=== PATIENT | female | born 1940 | race Caucasian/White ===

== ENCOUNTER → 2018-01-02 | Outpatient (CLI) | payer MEDICARE, BC ==
[~2018-01-02] MED LIST: BUDE80AE3; CARV40CA; EZET10TA47; FLUT0.0531; FURO40TA4; KLORCON; LEVO50TA53; MICARDIS; MONT10TA23; PROVENTIL
== END | disposition home or self-care (01) ==
LOC: Rad HDHVI 12:13
PROVIDERS: ATTEND Internal Medicine Cardiovascular Disease
DX: I07.1 Rheumatic tricuspid insufficiency (principal); I11.0 Hypertensive heart disease with heart failure; R00.2 Palpitations; I50.9 Heart failure, unspecified; E03.9 Hypothyroidism, unspecified; E11.9 Type 2 diabetes mellitus without complications; I73.9 Peripheral vascular disease, unspecified
CPT/HCPCS: 93306; 93880

== ENCOUNTER → 2018-01-23 | Outpatient (CLI) | payer MEDICARE, BC ==
[~2018-01-23] VITALS: Ht 157.5 cm; Wt 65.8 kg
[2018-01-23 12:32] LABS: Basophils # (auto) 0 uL; Basophils % (auto) 0.2 % (0.0-2.0); Eosinophils # (auto) 0.1 uL; Eosinophils % (auto) 2.2 % (0.0-7.0); Hematocrit 45.8 % (36.0-46.0); Lymphocytes # (auto) 1.7 uL; Lymphocytes % (auto) 28.3 % (10.0-50.0); Mean Corpuscular Hemoglobin 29.2 pg (28.0-32.0); Mean Corpuscular Hgb Conc. 32.6 g/dL (32.0-36.0); Mean Corpuscular Volume 89.6 fL (80.0-100.0); Monocytes # (auto) 0.5 uL; Monocytes % (auto) 7.9 % (0.0-12.0); Neutrophils # (auto) 3.6 uL; Neutrophils % (auto) 61.4 % (37.0-80.0); Nucleated Red Blood Cells % 0.2 %; Platelet Count (auto) 164 10^3/uL (140-450); Red Blood Cells 5.12 10^6/uL (4.0-5.20); Red Cell Distribution Width 14.7 % (11.8-14.3); Urine Blood Negative /uL (Negative); Urine Specific Gravity 1.009 (1.001-1.035); White Blood Cell 5.8 10^3/uL (4.4-10.8)
[2018-01-23 12:47] LABS: Albumin 3.7 g/dL (3.4-5.0); Bilirubin, Total 0.7 mg/dL (0.2-1.0); Calcium 9.1 mg/dL (8.5-10.1); Free T4 (Free Thyroxine) 1.08 ng/dL (0.89-1.76); Potassium 4.1 mmol/L (3.5-5.1); Total Protein 6.7 g/dL (6.4-8.2)
== END | disposition home or self-care (01) ==
LOC: Rad HDHVI 08:24
PROVIDERS: ATTEND Internal Medicine Cardiovascular Disease
DX: Z00.01 Encounter for general adult medical examination with abnormal findings (principal); E03.9 Hypothyroidism, unspecified; E11.9 Type 2 diabetes mellitus without complications; E55.9 Vitamin D deficiency, unspecified; D51.9 Vitamin B12 deficiency anemia, unspecified; N39.0 Urinary tract infection, site not specified; I10 Essential (primary) hypertension; E78.00 Pure hypercholesterolemia, unspecified; R00.2 Palpitations
CPT/HCPCS: 36415; 78452; 80053; 80061; 81003; 82306; 82607; 83036; 84439; 84443; 85025; 87086; 93017; 96374; A9500

== ENCOUNTER → 2018-12-04 | Outpatient (CLI) | payer MEDICARE, BC ==
[2018-12-04 12:05] LABS: Basophils # (auto) 0 uL; Basophils % (auto) 0.4 % (0.0-2.0); Eosinophils # (auto) 0.1 uL; Eosinophils % (auto) 1.6 % (0.0-7.0); Hematocrit 46.7 % (36.0-46.0); Hemoglobin 15.9 g/dL (12.2-16.2); Lymphocytes # (auto) 1.2 uL; Lymphocytes % (auto) 19.4 % (10.0-50.0); Mean Corpuscular Hemoglobin 30.6 pg (28.0-32.0); Mean Corpuscular Hgb Conc. 34.1 g/dL (32.0-36.0); Mean Corpuscular Volume 89.7 fL (80.0-100.0); Monocytes # (auto) 0.4 uL; Monocytes % (auto) 7.2 % (0.0-12.0); Neutrophils # (auto) 4.3 uL; Neutrophils % (auto) 71.4 % (37.0-80.0); Nucleated Red Blood Cells % 0.1 %; Platelet Count (auto) 170 10^3/uL (140-450); White Blood Cell 6.1 10^3/uL (4.4-10.8)
[2018-12-04 12:06] LABS: Urine Blood Negative /uL (Negative); Urine Specific Gravity 1.013 (1.001-1.035)
[2018-12-04 12:52] LABS: Calcium 9.5 mg/dL (8.5-10.1); Potassium 4.1 mmol/L (3.5-5.1)
[2018-12-04 12:55] LABS: BUN/Creatinine Ratio 30.5; Bilirubin, Total 0.5 mg/dL (0.2-1.0); Total Protein 7.2 g/dL (6.4-8.2)
[2018-12-04 13:04] LABS: Free T4 (Free Thyroxine) 1.03 ng/dL (0.89-1.76)
== END | disposition home or self-care (01) ==
LOC: LAB 07:53
PROVIDERS: ATTEND Internal Medicine Cardiovascular Disease
DX: E03.9 Hypothyroidism, unspecified (principal); K90.9 Intestinal malabsorption, unspecified; N39.0 Urinary tract infection, site not specified; D51.9 Vitamin B12 deficiency anemia, unspecified; Z79.899 Other long term (current) drug therapy
CPT/HCPCS: 36415; 80053; 80061; 81003; 82306; 82607; 83036; 84439; 84443; 85025

== ENCOUNTER → 2019-12-19 | Outpatient (CLI) | payer MEDICARE, OTHER ==
[~2019-12-19] MED LIST changes: +EZET10TA21; -EZET10TA47
== END | disposition home or self-care (01) ==
LOC: Rad HDHVI 09:50
PROVIDERS: ATTEND Internal Medicine Cardiovascular Disease
DX: I27.21 Secondary pulmonary arterial hypertension (principal); R00.2 Palpitations; I10 Essential (primary) hypertension
CPT/HCPCS: 93306

== ENCOUNTER → 2020-05-24 | Outpatient (CLI) | payer MEDICARE, BC ==
[2020-05-24 12:02] LABS: Urine Blood Negative /uL (Negative); Urine Specific Gravity 1.012 (1.001-1.035)
[2020-05-24 12:17] LABS: Basophils # (auto) 0 10 ^3/uL (0-0.2); Basophils % (auto) 0.4 % (0.0-2.0); Eosinophils # (auto) 0.2 10 ^3/uL (0-0.8); Eosinophils % (auto) 3.7 % (0.0-7.0); Hematocrit 44.9 % (36.0-46.0); Lymphocytes # (auto) 1.2 10 ^3/uL (0.4-5.4); Lymphocytes % (auto) 22.3 % (10.0-50.0); Mean Corpuscular Hemoglobin 29.1 pg (28.0-32.0); Mean Corpuscular Hgb Conc. 33.5 g/dL (32.0-36.0); Monocytes # (auto) 0.5 10 ^3/uL (0-1.3); Monocytes % (auto) 8.1 % (0.0-12.0); Neutrophils # (auto) 3.7 10 ^3/uL (1.6-8.6); Neutrophils % (auto) 65.5 % (37.0-80.0); Nucleated Red Blood Cells % 0.1 %; Platelet Count (auto) 190 10^3/uL (140-450); Red Blood Cells 5.16 10^6/uL (4.0-5.20); Red Cell Distribution Width 15.2 % (11.8-14.3); White Blood Cell 5.6 10^3/uL (4.4-10.8)
[2020-05-24 12:18] LABS: Albumin 3.7 g/dL (3.4-5.0); Potassium 4.4 mmol/L (3.5-5.1)
[2020-05-24 12:22] LABS: BUN/Creatinine Ratio 20.9; Bilirubin, Total 0.5 mg/dL (0.2-1.0); Free T4 (Free Thyroxine) 1.16 ng/dL (0.89-1.76); Total Protein 7.3 g/dL (6.4-8.2)
== END | disposition home or self-care (01) ==
LOC: LAB 08:51
PROVIDERS: ATTEND Internal Medicine Cardiovascular Disease
DX: D51.3 Other dietary vitamin B12 deficiency anemia (principal); I10 Essential (primary) hypertension; E11.9 Type 2 diabetes mellitus without complications; E55.9 Vitamin D deficiency, unspecified; R00.2 Palpitations; R30.0 Dysuria; R53.1 Weakness
CPT/HCPCS: 36415; 80053; 80061; 81003; 82306; 82607; 83036; 84439; 84443; 85025

== ENCOUNTER → 2020-07-09 | Outpatient (CLI) | payer MEDICARE, BC ==
[~2020-07-09] VITALS: Ht 157.5 cm; Wt 77.6 kg
[~2020-07-09] MED LIST changes: +ADENOSINE 65 MG in GIVE UN-DILUTED 0 ML IV ONE; +ADENOSINE 90 MG/30 ML INJ IV ONE
== END | disposition home or self-care (01) ==
LOC: Rad HDHVI 08:11
PROVIDERS: ATTEND Internal Medicine Cardiovascular Disease
DX: I10 Essential (primary) hypertension (principal); E78.00 Pure hypercholesterolemia, unspecified; E78.5 Hyperlipidemia, unspecified; R06.01 Orthopnea; R06.02 Shortness of breath; R07.89 Other chest pain
CPT/HCPCS: 78452; 93005; 96374; 96375; A9500; J0153

== ENCOUNTER → 2020-12-21 | Outpatient (CLI) | payer MEDICARE, BC ==
[~2020-12-21] MED LIST changes: -ADENOSINE 65 MG in GIVE UN-DILUTED 0 ML IV ONE; -ADENOSINE 90 MG/30 ML INJ IV ONE
== END | disposition home or self-care (01) ==
LOC: Rad HDHVI 09:59
PROVIDERS: ATTEND Internal Medicine Cardiovascular Disease
DX: I08.1 Rheumatic disorders of both mitral and tricuspid valves (principal); I71.2 Thoracic aortic aneurysm, without rupture; R00.2 Palpitations; R07.89 Other chest pain
CPT/HCPCS: 93306

== ENCOUNTER → 2020-12-24 | Outpatient (CLI) | payer MEDICARE, BC ==
[2020-12-24 11:22] LABS: Urine Blood Negative /uL (Negative); Urine Specific Gravity 1.007 (1.001-1.035)
[2020-12-24 11:23] LABS: Basophils # (auto) 0 10 ^3/uL (0-0.2); Basophils % (auto) 0.7 % (0.0-2.0); Eosinophils # (auto) 0.1 10 ^3/uL (0-0.8); Eosinophils % (auto) 2.7 % (0.0-7.0); Hematocrit 44.2 % (36.0-46.0); Hemoglobin 15.1 g/dL (12.2-16.2); Lymphocytes # (auto) 1.3 10 ^3/uL (0.4-5.4); Lymphocytes % (auto) 25.9 % (10.0-50.0); Mean Corpuscular Hemoglobin 29.8 pg (28.0-32.0); Mean Corpuscular Hgb Conc. 34.2 g/dL (32.0-36.0); Mean Corpuscular Volume 87.2 fL (80.0-100.0); Monocytes # (auto) 0.4 10 ^3/uL (0-1.3); Monocytes % (auto) 8.8 % (0.0-12.0); Neutrophils % (auto) 61.9 % (37.0-80.0); Nucleated Red Blood Cells % 0.2 %; Red Blood Cells 5.06 10^6/uL (4.0-5.20); Red Cell Distribution Width 15.2 % (11.8-14.3); White Blood Cell 4.9 10^3/uL (4.4-10.8)
[2020-12-24 11:27] LABS: Albumin 3.5 g/dL (3.4-5.0); Calcium 9.4 mg/dL (8.5-10.1); Potassium 4.2 mmol/L (3.5-5.1)
[2020-12-24 11:33] LABS: BUN/Creatinine Ratio 24.1; Bilirubin, Total 0.6 mg/dL (0.2-1.0); Total Protein 6.9 g/dL (6.4-8.2)
[2020-12-24 16:16] LABS: Free T4 (Free Thyroxine) 1.01 ng/dL (0.89-1.76)
== END | disposition home or self-care (01) ==
LOC: LAB 07:56
PROVIDERS: ATTEND Internal Medicine Cardiovascular Disease
DX: D51.3 Other dietary vitamin B12 deficiency anemia (principal); I10 Essential (primary) hypertension; E11.9 Type 2 diabetes mellitus without complications; E55.9 Vitamin D deficiency, unspecified; D64.9 Anemia, unspecified; R00.2 Palpitations; R53.1 Weakness; R30.0 Dysuria
CPT/HCPCS: 36415; 80053; 80061; 81003; 82306; 82607; 83036; 84439; 84443; 85025

== ENCOUNTER → 2022-01-25 | Outpatient (CLI) | payer MEDICARE, BC ==
[2022-01-25 11:38] LABS: Basophils # (auto) 0 10 ^3/uL (0-0.2); Basophils % (auto) 0.5 % (0.0-2.0); Eosinophils # (auto) 0.1 10 ^3/uL (0-0.8); Eosinophils % (auto) 1.9 % (0.0-7.0); Lymphocytes # (auto) 1.1 10 ^3/uL (0.4-5.4); Lymphocytes % (auto) 24.9 % (10.0-50.0); Mean Corpuscular Hemoglobin 27.9 pg (28.0-32.0); Mean Corpuscular Hgb Conc. 31.9 g/dL (32.0-36.0); Mean Corpuscular Volume 87.5 fL (80.0-100.0); Monocytes # (auto) 0.3 10 ^3/uL (0-1.3); Monocytes % (auto) 7.2 % (0.0-12.0); Neutrophils # (auto) 2.9 10 ^3/uL (1.6-8.6); Neutrophils % (auto) 65.5 % (37.0-80.0); Nucleated Red Blood Cells % 0.1 %; Red Blood Cells 5.37 10^6/uL (4.0-5.20); White Blood Cell 4.4 10^3/uL (4.4-10.8)
[2022-01-25 11:46] LABS: Urine Blood Negative /uL (Negative); Urine Specific Gravity 1.005 (1.001-1.035)
[2022-01-25 11:56] LABS: Albumin 3.9 g/dL (3.4-5.0); Calcium 9.4 mg/dL (8.5-10.1); Potassium 4.1 mmol/L (3.5-5.1)
[2022-01-25 12:02] LABS: BUN/Creatinine Ratio 16.1; Bilirubin, Total 0.6 mg/dL (0.2-1.0); Total Protein 6.8 g/dL (6.4-8.2)
[2022-01-25 14:52] LABS: Free T4 (Free Thyroxine) 1.12 ng/dL (0.89-1.76)
== END | disposition home or self-care (01) ==
LOC: LAB 08:18
PROVIDERS: ATTEND Internal Medicine Cardiovascular Disease
DX: I10 Essential (primary) hypertension (principal); E55.9 Vitamin D deficiency, unspecified; D51.3 Other dietary vitamin B12 deficiency anemia; D64.9 Anemia, unspecified; E11.9 Type 2 diabetes mellitus without complications; R00.2 Palpitations; R53.1 Weakness; R30.0 Dysuria
CPT/HCPCS: 36415; 80053; 80061; 81003; 82306; 82607; 83036; 84439; 84443; 85025

== ENCOUNTER → 2022-03-28 | Outpatient (CLI) | payer MEDICARE, BC ==
[~2022-03-28] MED LIST changes: +CYANOCOBALAMIN (B-12) 1000 MCG/1 ML VIAL IM ONE; +CYANOCOBALAMIN (B-12) 1000 MCG/1 ML VIAL ONE
[2022-03-28 08:42] VITALS: BP 185/87
[2022-03-28 10:05] VITALS: BP 167/66
[2022-03-28 10:11] LABS: Basophils # (auto) 0 10 ^3/uL (0-0.2); Lymphocytes # (auto) 1.2 10 ^3/uL (0.4-5.4); Monocytes # (auto) 0.4 10 ^3/uL (0-1.3)
[2022-03-28 10:28] LABS: BUN/Creatinine Ratio 31.5; Bilirubin, Total 0.8 mg/dL (0.2-1.0); Calcium 10.2 mg/dL (8.5-10.1); Magnesium 2.7 mg/dL (1.6-2.6); Potassium 4.5 mmol/L (3.5-5.1); Total Protein 7.1 g/dL (6.4-8.2)
[2022-03-28 10:30] LABS: Basophils % (auto) 0.4 % (0.0-2.0); Eosinophils # (auto) 0.2 10 ^3/uL (0-0.8); Eosinophils % (auto) 2.7 % (0.0-7.0); Hematocrit 47.6 % (36.0-46.0); Hemoglobin 15.9 g/dL (12.2-16.2); Lymphocytes % (auto) 20.8 % (10.0-50.0); Mean Corpuscular Hgb Conc. 33.3 g/dL (32.0-36.0); Mean Corpuscular Volume 87.2 fL (80.0-100.0); Monocytes % (auto) 7.6 % (0.0-12.0); Neutrophils # (auto) 3.9 10 ^3/uL (1.6-8.6); Neutrophils % (auto) 68.5 % (37.0-80.0); Red Blood Cells 5.46 10^6/uL (4.0-5.20); Red Cell Distribution Width 15.5 % (11.8-14.3); White Blood Cell 5.7 10^3/uL (4.4-10.8)
== END | disposition home or self-care (01) ==
LOC: CHF HDHVI 08:37
PROVIDERS: ATTEND Internal Medicine Cardiovascular Disease
DX: I10 Essential (primary) hypertension (principal)
CPT/HCPCS: 36415; 80053; 83735; 83880; 85025; 93005; 94618; 96372; G0463

== ENCOUNTER → 2022-04-04 | Outpatient (CLI) | payer MEDICARE, BC ==
[~2022-04-04] MED LIST changes: -CYANOCOBALAMIN (B-12) 1000 MCG/1 ML VIAL IM ONE; -CYANOCOBALAMIN (B-12) 1000 MCG/1 ML VIAL ONE
[2022-04-04 09:10] VITALS: BP 158/59
== END | disposition home or self-care (01) ==
LOC: CHF HDHVI 09:08
PROVIDERS: ATTEND Internal Medicine Cardiovascular Disease
DX: I70.0 Atherosclerosis of aorta (principal); M47.814 Spondylosis without myelopathy or radiculopathy, thoracic region; J98.11 Atelectasis; R06.02 Shortness of breath; I27.21 Secondary pulmonary arterial hypertension
CPT/HCPCS: 71046; G0463

== ENCOUNTER → 2022-04-11 | Outpatient (CLI) | payer MEDICARE, BC ==
[2022-04-11 09:04] VITALS: BP 184/72
[2022-04-11 09:30] VITALS: BP 161/61
== END | disposition home or self-care (01) ==
LOC: CHF HDHVI 09:02
PROVIDERS: ATTEND Internal Medicine Cardiovascular Disease
DX: I27.21 Secondary pulmonary arterial hypertension (principal)
CPT/HCPCS: G0463

== ENCOUNTER → 2022-04-19 | Outpatient (CLI) | payer MEDICARE, BC ==
[~2022-04-19] MED LIST changes: +ATOR40TA52 PO; +BENA20TA14 PO; +CARV25TA55 PO; +HYDR200T36 PO; +MONT-8 PO; +TADA20TA47 PO
== END | disposition home or self-care (01) ==
LOC: Rad HDHVI 12:47
PROVIDERS: ATTEND Internal Medicine Cardiovascular Disease
DX: I08.1 Rheumatic disorders of both mitral and tricuspid valves (principal); I27.21 Secondary pulmonary arterial hypertension; R07.89 Other chest pain; R06.02 Shortness of breath
CPT/HCPCS: 93306

== ENCOUNTER → 2022-05-01 | Outpatient (CLI) | payer MEDICARE, OTHER ==
[2022-05-01 10:56] VITALS: BP 200/86
[2022-05-01 11:04] VITALS: BP 159/73
[2022-05-01 12:00] LABS: Basophils # (auto) 0 10 ^3/uL (0-0.2); Basophils % (auto) 0.3 % (0.0-2.0); Eosinophils # (auto) 0.2 10 ^3/uL (0-0.8); Eosinophils % (auto) 2.6 % (0.0-7.0); Hematocrit 46.2 % (36.0-46.0); Hemoglobin 15.2 g/dL (12.2-16.2); Lymphocytes # (auto) 1.3 10 ^3/uL (0.4-5.4); Lymphocytes % (auto) 21.8 % (10.0-50.0); Mean Corpuscular Hemoglobin 28.9 pg (28.0-32.0); Mean Corpuscular Hgb Conc. 32.9 g/dL (32.0-36.0); Mean Corpuscular Volume 87.8 fL (80.0-100.0); Monocytes # (auto) 0.5 10 ^3/uL (0-1.3); Monocytes % (auto) 8.4 % (0.0-12.0); Neutrophils # (auto) 3.9 10 ^3/uL (1.6-8.6); Neutrophils % (auto) 66.9 % (37.0-80.0); Nucleated Red Blood Cells % 0.2 %; Red Blood Cells 5.26 10^6/uL (4.0-5.20); Red Cell Distribution Width 15.7 % (11.8-14.3); White Blood Cell 5.8 10^3/uL (4.4-10.8)
[2022-05-01 12:11] LABS: BUN/Creatinine Ratio 27.3; Calcium 9.9 mg/dL (8.5-10.1); Potassium 4.6 mmol/L (3.5-5.1)
== END | disposition home or self-care (01) ==
LOC: Rad HDHVI 10:39
PROVIDERS: ATTEND Internal Medicine Cardiovascular Disease
DX: I50.33 Acute on chronic diastolic (congestive) heart failure (principal)
CPT/HCPCS: 36415; 71046; 80048; 85025; 85610; 85730; G0463

== ENCOUNTER 2022-05-02 10:58 | Inpatient (IN) | payer MEDICARE, OTHER ==
[~2022-05-02] VITALS: Ht 157.5 cm; Wt 86.5 kg
[2022-05-02] VITALS (12 sets, daily range): BP systolic 96–177; BP diastolic 39–81
[~2022-05-02 10:58] MED LIST changes: -BUDE80AE3; -CARV40CA; -EZET10TA21; -FLUT0.0531; -FURO40TA4; -KLORCON; -MICARDIS; -MONT-8 PO; -PROVENTIL
[2022-05-02] MEDS ORDERED: LIDOCAINE 2%HCL (LOCAL ANESTH.) INJ 10ml MDV ONE ×2 (11:37→11:38)
[2022-05-02] MEDS ORDERED: fentaNYL CITRATE 100 MCG/2 ML VL ONE (11:45)
[2022-05-02] MEDS ORDERED: MIDAZOLAM HCL 2MG/2ML 2ml VIAL (1mg/ml) ONE (11:45)
[2022-05-02] MEDS ORDERED: LIDOCAINE 2%HCL (LOCAL ANESTH.) INJ 20ML MDV ONE (11:52)
[2022-05-02] MEDS ORDERED: NITROGLYCERIN 0.4 MG SL TAB SL PRN (13:00)
[2022-05-02] MEDS ORDERED: MORPHINE SULFATE INJ 2 MG/ml SYRG IV PRN (13:00)
[2022-05-02] MEDS: ACETAMINOPHEN 500 MG TAB PO PRN (13:44)
[2022-05-02] MEDS: SODIUM CHLOR 0.9% PF (SALINE LOCK) 10ML VIAL/SYR IV SCH ×2 (14:27→22:47)
[2022-05-02] MEDS ORDERED: cloNIDine HCL 0.1 MG TAB PO PRN (17:30)
[2022-05-02] MEDS: CARVEDILOL 12.5 MG TAB PO SCH (22:46)
[2022-05-02] MEDS: TADALAFIL 20 MG PO SCH (22:47)
[2022-05-03 05:00] VITALS: BP 115/53
[2022-05-03] MEDS: ACETAMINOPHEN 500 MG TAB PO PRN (06:16)
[2022-05-03] MEDS: SODIUM CHLOR 0.9% PF (SALINE LOCK) 10ML VIAL/SYR IV SCH ×2 (06:19→14:00)
[2022-05-03] MEDS ORDERED: LEVOTHYROXINE SODIUM 50 MCG TAB PO SCH (07:00)
[2022-05-03 09:17] VITALS: BP 126/52
[2022-05-03] MEDS: CARVEDILOL 12.5 MG TAB PO SCH (09:24)
[2022-05-03] MEDS: TADALAFIL 20 MG PO SCH (09:25)
[2022-05-03] MEDS ORDERED: BENAZEPRIL HCL 10 MG TAB PO SCH (10:00)
[2022-05-03] MEDS ORDERED: hydrOXYchloroQUINE SULFATE 200 MG TAB PO SCH (10:00)
[2022-05-03] MEDS ORDERED: ATORVASTATIN 20 MG TAB PO SCH (10:00)
[2022-05-03] MEDS ORDERED: PATIENTS OWN MEDICATION (Benazepril Hcl 20 MG) PO SCH (10:00)
[2022-05-03 12:22] VITALS: BP 104/42
[2022-05-03 14:53] VITALS: BP 104/42
== END 2022-05-03 15:51 | disposition home or self-care (01) | DRG 287 ==
LOC: CATH 10:58 → OVERFLOW 12:57 → CENTRAL 17:27
PROVIDERS: ADMIT Internal Medicine Cardiovascular Disease; ATTEND Internal Medicine Cardiovascular Disease
PROC: 4A023N6 Measurement of Cardiac Sampling and Pressure, Right Heart, Percutaneous Approach (ICD-10-PCS; principal; 2022-05-02)
DX: I27.20 Pulmonary hypertension, unspecified (principal); Z20.822 Contact with and (suspected) exposure to COVID-19; E78.5 Hyperlipidemia, unspecified; I10 Essential (primary) hypertension; M19.90 Unspecified osteoarthritis, unspecified site
CPT/HCPCS: 36415; 71046; 80048; 85025; 85610; 85730; 99152; C1751; G0378; G0463; J2001; J2250

== ENCOUNTER → 2022-05-29 | Outpatient (CLI) | payer MEDICARE, OTHER ==
[~2022-05-29] MED LIST changes: +CYANOCOBALAMIN (B-12) 1000 MCG/1 ML VIAL IM ONE; +CYANOCOBALAMIN (B-12) 1000 MCG/1 ML VIAL ONE
[2022-05-29 13:00] VITALS: BP 117/57
[2022-05-29 13:36] VITALS: BP 144/60
[2022-05-29 16:14] LABS: Basophils # (auto) 0 10 ^3/uL (0-0.2); Basophils % (auto) 0.5 % (0.0-2.0); Eosinophils # (auto) 0.2 10 ^3/uL (0-0.8); Eosinophils % (auto) 2.8 % (0.0-7.0); Hemoglobin 14.8 g/dL (12.2-16.2); Lymphocytes # (auto) 1.2 10 ^3/uL (0.4-5.4); Lymphocytes % (auto) 20.8 % (10.0-50.0); Mean Corpuscular Hemoglobin 29.7 pg (28.0-32.0); Mean Corpuscular Hgb Conc. 34.5 g/dL (32.0-36.0); Mean Corpuscular Volume 86.2 fL (80.0-100.0); Monocytes # (auto) 0.4 10 ^3/uL (0-1.3); Monocytes % (auto) 6.3 % (0.0-12.0); Neutrophils % (auto) 69.6 % (37.0-80.0); Nucleated Red Blood Cells % 0.1 %; Red Blood Cells 4.99 10^6/uL (4.0-5.20); Red Cell Distribution Width 15.2 % (11.8-14.3); White Blood Cell 5.7 10^3/uL (4.4-10.8)
[2022-05-29 16:18] LABS: Potassium 3.9 mmol/L (3.5-5.1)
[2022-05-29 16:24] LABS: Albumin 4.1 g/dL (3.4-5.0); BUN/Creatinine Ratio 22.2; Bilirubin, Total 0.6 mg/dL (0.2-1.0); Calcium 9.3 mg/dL (8.5-10.1); Magnesium 2.4 mg/dL (1.6-2.6); Total Protein 6.7 g/dL (6.4-8.2)
== END | disposition home or self-care (01) ==
LOC: CHF HDHVI 12:57
PROVIDERS: ATTEND Internal Medicine Cardiovascular Disease
DX: I27.21 Secondary pulmonary arterial hypertension (principal); R06.02 Shortness of breath; R53.83 Other fatigue; E83.42 Hypomagnesemia; E64.9 Sequelae of unspecified nutritional deficiency
CPT/HCPCS: 36415; 80053; 83735; 85025; 96372; G0463; J3420

== ENCOUNTER → 2022-06-02 | Outpatient (CLI) | payer MEDICARE, OTHER ==
[~2022-06-02] MED LIST changes: -CYANOCOBALAMIN (B-12) 1000 MCG/1 ML VIAL IM ONE; -CYANOCOBALAMIN (B-12) 1000 MCG/1 ML VIAL ONE
[2022-06-02 12:07] LABS: Urine Blood Negative /uL (Negative); Urine Specific Gravity 1.007 (1.001-1.035)
== END | disposition home or self-care (01) ==
LOC: LAB 10:09
PROVIDERS: ATTEND Internal Medicine Cardiovascular Disease
DX: N39.0 Urinary tract infection, site not specified (principal)
CPT/HCPCS: 81003; 87086

== ENCOUNTER → 2022-06-13 | Outpatient (CLI) | payer MEDICARE, OTHER ==
[2022-06-13 08:57] VITALS: BP 148/63
[2022-06-13 09:10] VITALS: BP 143/59
== END | disposition home or self-care (01) ==
LOC: CHF HDHVI 08:55
PROVIDERS: ATTEND Internal Medicine Cardiovascular Disease
DX: I27.21 Secondary pulmonary arterial hypertension (principal)
CPT/HCPCS: G0463

== ENCOUNTER → 2022-06-27 | Outpatient (CLI) | payer MEDICARE, OTHER ==
[~2022-06-27] MED LIST changes: +CYANOCOBALAMIN (B-12) 1000 MCG/1 ML VIAL IM ONE; +CYANOCOBALAMIN (B-12) 1000 MCG/1 ML VIAL ONE
[2022-06-27 08:50] VITALS: BP 152/66
[2022-06-27 09:20] VITALS: BP 166/73
[2022-06-27 12:02] LABS: Basophils # (auto) 0 10 ^3/uL (0-0.2); Basophils % (auto) 0.5 % (0.0-2.0); Eosinophils # (auto) 0.1 10 ^3/uL (0-0.8); Eosinophils % (auto) 2.6 % (0.0-7.0); Hematocrit 43.8 % (36.0-46.0); Hemoglobin 14.7 g/dL (12.2-16.2); Lymphocytes # (auto) 1.1 10 ^3/uL (0.4-5.4); Lymphocytes % (auto) 22.6 % (10.0-50.0); Mean Corpuscular Hemoglobin 29.1 pg (28.0-32.0); Mean Corpuscular Hgb Conc. 33.5 g/dL (32.0-36.0); Mean Corpuscular Volume 86.6 fL (80.0-100.0); Monocytes # (auto) 0.5 10 ^3/uL (0-1.3); Monocytes % (auto) 9.8 % (0.0-12.0); Neutrophils # (auto) 3.2 10 ^3/uL (1.6-8.6); Neutrophils % (auto) 64.5 % (37.0-80.0); Nucleated Red Blood Cells % 0.1 %; Red Blood Cells 5.06 10^6/uL (4.0-5.20); Red Cell Distribution Width 15.8 % (11.8-14.3)
[2022-06-27 13:10] LABS: Potassium 4.4 mmol/L (3.5-5.1)
[2022-06-27 13:16] LABS: Albumin 3.7 g/dL (3.4-5.0); BUN/Creatinine Ratio 23.4; Calcium 9.9 mg/dL (8.5-10.1); Magnesium 2.4 mg/dL (1.6-2.6)
[2022-06-27 13:20] LABS: Bilirubin, Total 0.6 mg/dL (0.2-1.0); Total Protein 6.8 g/dL (6.4-8.2)
== END | disposition home or self-care (01) ==
LOC: CHF HDHVI 08:54
PROVIDERS: ATTEND Internal Medicine Cardiovascular Disease
DX: I27.21 Secondary pulmonary arterial hypertension (principal); I10 Essential (primary) hypertension; R00.2 Palpitations; R06.02 Shortness of breath; R53.83 Other fatigue
CPT/HCPCS: 36415; 80053; 83735; 85025; 96372; G0463; J3420

== ENCOUNTER → 2022-07-25 | Outpatient (CLI) | payer MEDICARE, OTHER ==
[~2022-07-25] MED LIST changes: -CYANOCOBALAMIN (B-12) 1000 MCG/1 ML VIAL IM ONE; -CYANOCOBALAMIN (B-12) 1000 MCG/1 ML VIAL ONE
[2022-07-25 10:31] LABS: Basophils # (auto) 0 10 ^3/uL (0-0.2); Basophils % (auto) 0.5 % (0.0-2.0); Eosinophils # (auto) 0.2 10 ^3/uL (0-0.8); Eosinophils % (auto) 3.8 % (0.0-7.0); Hematocrit 43.4 % (36.0-46.0); Hemoglobin 14.5 g/dL (12.2-16.2); Lymphocytes # (auto) 1.2 10 ^3/uL (0.4-5.4); Lymphocytes % (auto) 22.4 % (10.0-50.0); Mean Corpuscular Hemoglobin 28.9 pg (28.0-32.0); Mean Corpuscular Hgb Conc. 33.4 g/dL (32.0-36.0); Mean Corpuscular Volume 86.7 fL (80.0-100.0); Monocytes # (auto) 0.5 10 ^3/uL (0-1.3); Monocytes % (auto) 9.2 % (0.0-12.0); Neutrophils # (auto) 3.5 10 ^3/uL (1.6-8.6); Neutrophils % (auto) 64.1 % (37.0-80.0); Nucleated Red Blood Cells % 0.2 %; Red Blood Cells 5.01 10^6/uL (4.0-5.20); Red Cell Distribution Width 15.3 % (11.8-14.3); White Blood Cell 5.4 10^3/uL (4.4-10.8)
[2022-07-25 10:52] LABS: Potassium 4.4 mmol/L (3.5-5.1)
[2022-07-25 10:59] LABS: BUN/Creatinine Ratio 25.8; Bilirubin, Total 0.6 mg/dL (0.2-1.0); Calcium 9.7 mg/dL (8.5-10.1); Magnesium 2.5 mg/dL (1.6-2.6); Total Protein 6.8 g/dL (6.4-8.2)
== END | disposition home or self-care (01) ==
LOC: LAB 09:48
PROVIDERS: ATTEND Internal Medicine Cardiovascular Disease
DX: I10 Essential (primary) hypertension (principal); I27.21 Secondary pulmonary arterial hypertension
CPT/HCPCS: 36415; 80053; 83735; 85025

== ENCOUNTER → 2022-07-25 | Outpatient (CLI) | payer MEDICARE, OTHER ==
[~2022-07-25] MED LIST changes: +CYANOCOBALAMIN (B-12) 1000 MCG/1 ML VIAL IM ONE; +CYANOCOBALAMIN (B-12) 1000 MCG/1 ML VIAL ONE
[2022-07-25 08:53] VITALS: BP 154/74
[2022-07-25 09:20] VITALS: BP 150/67
== END | disposition home or self-care (01) ==
LOC: CHF HDHVI 08:50
PROVIDERS: ATTEND Internal Medicine Cardiovascular Disease
DX: I27.21 Secondary pulmonary arterial hypertension (principal); I10 Essential (primary) hypertension
CPT/HCPCS: 96372; G0463; J3420

== ENCOUNTER → 2022-08-29 | Outpatient (CLI) | payer MEDICARE, OTHER ==
[2022-08-29 10:20] VITALS: BP 134/58
[2022-08-29 10:47] VITALS: BP 141/54
[2022-08-29 11:40] LABS: Basophils # (auto) 0.1 10 ^3/uL (0-0.2); Basophils % (auto) 1.1 % (0.0-2.0); Eosinophils # (auto) 0.1 10 ^3/uL (0-0.8); Eosinophils % (auto) 2.1 % (0.0-7.0); Hematocrit 44.3 % (36.0-46.0); Hemoglobin 14.8 g/dL (12.2-16.2); Lymphocytes # (auto) 1.3 10 ^3/uL (0.4-5.4); Mean Corpuscular Hemoglobin 28.9 pg (28.0-32.0); Mean Corpuscular Hgb Conc. 33.3 g/dL (32.0-36.0); Mean Corpuscular Volume 86.9 fL (80.0-100.0); Monocytes # (auto) 0.5 10 ^3/uL (0-1.3); Monocytes % (auto) 8.8 % (0.0-12.0); Neutrophils # (auto) 3.4 10 ^3/uL (1.6-8.6); Nucleated Red Blood Cells % 0.1 %; Red Cell Distribution Width 14.6 % (11.8-14.3); White Blood Cell 5.4 10^3/uL (4.4-10.8)
[2022-08-29 12:15] LABS: Potassium 4.4 mmol/L (3.5-5.1)
[2022-08-29 12:25] LABS: Albumin 3.9 g/dL (3.4-5.0); BUN/Creatinine Ratio 29.5 (10.0-20.0); Bilirubin, Total 0.7 mg/dL (0.2-1.0); Calcium 10.5 mg/dL (8.5-10.1); Magnesium 2.6 mg/dL (1.6-2.6); Total Protein 6.7 g/dL (6.4-8.2)
== END | disposition home or self-care (01) ==
LOC: CHF HDHVI 10:14
PROVIDERS: ATTEND Internal Medicine Cardiovascular Disease
DX: I27.21 Secondary pulmonary arterial hypertension (principal); I10 Essential (primary) hypertension
CPT/HCPCS: 36415; 80053; 83735; 85025; 96372; G0463; J3420

== ENCOUNTER → 2022-09-27 | Outpatient (CLI) | payer MEDICARE, OTHER ==
[~2022-09-27] MED LIST changes: -CYANOCOBALAMIN (B-12) 1000 MCG/1 ML VIAL IM ONE; -CYANOCOBALAMIN (B-12) 1000 MCG/1 ML VIAL ONE
[2022-09-27 10:36] LABS: Basophils # (auto) 0 10 ^3/uL (0-0.2); Basophils % (auto) 0.5 % (0.0-2.0); Eosinophils # (auto) 0.1 10 ^3/uL (0-0.8); Eosinophils % (auto) 2.3 % (0.0-7.0); Hematocrit 44.3 % (36.0-46.0); Hemoglobin 14.7 g/dL (12.2-16.2); Lymphocytes # (auto) 1.3 10 ^3/uL (0.4-5.4); Mean Corpuscular Hemoglobin 29.1 pg (28.0-32.0); Mean Corpuscular Hgb Conc. 33.2 g/dL (32.0-36.0); Mean Corpuscular Volume 87.5 fL (80.0-100.0); Monocytes # (auto) 0.4 10 ^3/uL (0-1.3); Monocytes % (auto) 7.8 % (0.0-12.0); Neutrophils # (auto) 3.6 10 ^3/uL (1.6-8.6); Neutrophils % (auto) 66.4 % (37.0-80.0); Nucleated Red Blood Cells % 0.3 %; Red Blood Cells 5.06 10^6/uL (4.0-5.20); Red Cell Distribution Width 15.2 % (11.8-14.3); White Blood Cell 5.4 10^3/uL (4.4-10.8)
[2022-09-27 10:37] LABS: Potassium 4.6 mmol/L (3.5-5.1)
[2022-09-27 10:52] LABS: Albumin 4.2 g/dL (3.4-5.0); Bilirubin, Total 0.6 mg/dL (0.2-1.0); Calcium 10.2 mg/dL (8.5-10.1); Magnesium 2.8 mg/dL (1.6-2.6); Total Protein 6.9 g/dL (6.4-8.2)
== END | disposition home or self-care (01) ==
LOC: LAB 09:54
PROVIDERS: ATTEND Internal Medicine Cardiovascular Disease
DX: I27.21 Secondary pulmonary arterial hypertension (principal); I10 Essential (primary) hypertension; D64.9 Anemia, unspecified
CPT/HCPCS: 36415; 80053; 83735; 85025

== ENCOUNTER → 2022-09-27 | Outpatient (CLI) | payer MEDICARE, OTHER ==
[~2022-09-27] MED LIST changes: +CYANOCOBALAMIN (B-12) 1000 MCG/1 ML VIAL IM ONE; +CYANOCOBALAMIN (B-12) 1000 MCG/1 ML VIAL ONE
[2022-09-27 08:50] VITALS: BP 137/65
[2022-09-27 09:29] VITALS: BP 143/64
== END | disposition home or self-care (01) ==
LOC: CHF HDHVI 08:49
PROVIDERS: ATTEND Internal Medicine Cardiovascular Disease
DX: I27.21 Secondary pulmonary arterial hypertension (principal); R06.02 Shortness of breath; R53.83 Other fatigue; I10 Essential (primary) hypertension
CPT/HCPCS: 94618; 96372; G0463; J3420

== ENCOUNTER → 2022-11-15 | Outpatient (CLI) | payer MEDICARE, OTHER ==
[~2022-11-15] MED LIST changes: +BENA-36 PO; -BENA20TA14 PO; -CYANOCOBALAMIN (B-12) 1000 MCG/1 ML VIAL IM ONE; -CYANOCOBALAMIN (B-12) 1000 MCG/1 ML VIAL ONE
[2022-11-15 11:45] LABS: Basophils # (auto) 0 10 ^3/uL (0-0.2); Basophils % (auto) 0.6 % (0.0-2.0); Eosinophils # (auto) 0.1 10 ^3/uL (0-0.8); Eosinophils % (auto) 2.1 % (0.0-7.0); Hematocrit 45.6 % (36.0-46.0); Hemoglobin 15.2 g/dL (12.2-16.2); Lymphocytes # (auto) 1.2 10 ^3/uL (0.4-5.4); Mean Corpuscular Hemoglobin 28.9 pg (28.0-32.0); Mean Corpuscular Hgb Conc. 33.3 g/dL (32.0-36.0); Mean Corpuscular Volume 86.9 fL (80.0-100.0); Monocytes # (auto) 0.3 10 ^3/uL (0-1.3); Monocytes % (auto) 6.5 % (0.0-12.0); Neutrophils # (auto) 3.4 10 ^3/uL (1.6-8.6); Neutrophils % (auto) 66.8 % (37.0-80.0); Nucleated Red Blood Cells % 0.1 %; Red Blood Cells 5.25 10^6/uL (4.0-5.20)
[2022-11-15 12:29] LABS: Albumin 4.1 g/dL (3.4-5.0); Calcium 9.4 mg/dL (8.5-10.1); Magnesium 2.5 mg/dL (1.6-2.6); Potassium 4.3 mmol/L (3.5-5.1)
[2022-11-15 12:34] LABS: BUN/Creatinine Ratio 19.4 (10.0-20.0); Bilirubin, Total 0.8 mg/dL (0.2-1.0); Total Protein 6.9 g/dL (6.4-8.2)
== END | disposition home or self-care (01) ==
LOC: LAB 11:32
PROVIDERS: ATTEND Internal Medicine Cardiovascular Disease
DX: I10 Essential (primary) hypertension (principal); I27.21 Secondary pulmonary arterial hypertension; D64.9 Anemia, unspecified
CPT/HCPCS: 36415; 80053; 83735; 85025

== ENCOUNTER → 2022-12-13 | Outpatient (CLI) | payer MEDICARE, OTHER ==
[~2022-12-13] VITALS: Ht 30.5 cm; Wt 0.5 kg
[~2022-12-13] MED LIST changes: +CYANOCOBALAMIN (B-12) 1000 MCG/1 ML VIAL IM ONE; +CYANOCOBALAMIN (B-12) 1000 MCG/1 ML VIAL ONE
[2022-12-13 08:57] VITALS: BP 134/54; PULSE 73; RESP 18; O2SAT 92
[2022-12-13 10:05] VITALS: BP 120/51; PULSE 64; RESP 16; O2SAT 93
== END | disposition home or self-care (01) ==
LOC: CHF HDHVI 09:49
PROVIDERS: ATTEND Internal Medicine Cardiovascular Disease
DX: I27.21 Secondary pulmonary arterial hypertension (principal); D64.9 Anemia, unspecified; I10 Essential (primary) hypertension; E78.5 Hyperlipidemia, unspecified
CPT/HCPCS: 36415; 80053; 83735; 85025; 96372; G0463; J3420

== ENCOUNTER → 2023-01-09 | Outpatient (CLI) | payer MEDICARE, OTHER ==
[~2023-01-09] VITALS: Ht 30.5 cm; Wt 0.5 kg
[2023-01-09 08:45] VITALS: BP 134/59; PULSE 70; RESP 16; O2SAT 92
[2023-01-09 09:12] VITALS: BP 124/50; PULSE 62; RESP 16; O2SAT 92
== END | disposition home or self-care (01) ==
LOC: CHF HDHVI 08:51
PROVIDERS: ATTEND Internal Medicine Cardiovascular Disease
DX: I27.21 Secondary pulmonary arterial hypertension (principal); D64.9 Anemia, unspecified; I10 Essential (primary) hypertension; E78.5 Hyperlipidemia, unspecified
CPT/HCPCS: 96372; G0463; J3420

== ENCOUNTER → 2023-02-13 | Outpatient (CLI) | payer MEDICARE, OTHER ==
[2023-02-13 09:00] VITALS: BP 129/66; PULSE 77; RESP 18; O2SAT 91
[2023-02-13 09:40] VITALS: BP 130/58; PULSE 67; RESP 18; O2SAT 92
== END | disposition home or self-care (01) ==
LOC: CHF HDHVI 08:52
PROVIDERS: ATTEND Internal Medicine Cardiovascular Disease
DX: I27.21 Secondary pulmonary arterial hypertension (principal); D64.9 Anemia, unspecified; I10 Essential (primary) hypertension; E78.5 Hyperlipidemia, unspecified
CPT/HCPCS: 94618; 96372; G0463; J3420

== ENCOUNTER → 2023-05-24 | Outpatient (CLI) | payer MEDICARE, OTHER ==
[~2023-05-24] MED LIST changes: -CYANOCOBALAMIN (B-12) 1000 MCG/1 ML VIAL IM ONE; -CYANOCOBALAMIN (B-12) 1000 MCG/1 ML VIAL ONE
[2023-05-24 09:48] LABS: Basophils # (auto) 0 10 ^3/uL (0-0.2); Basophils % (auto) 0.5 % (0.0-2.0); Eosinophils # (auto) 0.1 10 ^3/uL (0-0.8); Eosinophils % (auto) 1.8 % (0.0-7.0); Hematocrit 45.9 % (36.0-46.0); Hemoglobin 15.2 g/dL (12.2-16.2); Lymphocytes # (auto) 1.2 10 ^3/uL (0.4-5.4); Lymphocytes % (auto) 22.3 % (10.0-50.0); Mean Corpuscular Hemoglobin 28.7 pg (28.0-32.0); Mean Corpuscular Volume 86.9 fL (80.0-100.0); Monocytes # (auto) 0.4 10 ^3/uL (0-1.3); Neutrophils # (auto) 3.6 10 ^3/uL (1.6-8.6); Neutrophils % (auto) 67.4 % (37.0-80.0); Nucleated Red Blood Cells % 0.1 %; Red Blood Cells 5.29 10^6/uL (4.0-5.20); Red Cell Distribution Width 15.3 % (11.8-14.3); White Blood Cell 5.3 10^3/uL (4.4-10.8)
[2023-05-24 10:09] LABS: Urine Blood Negative /uL (Negative); Urine Clarity Clear (Clear); Urine Color Colorless (Yellow); Urine Protein, UAD Negative (Negative); Urine Specific Gravity 1.005 (1.001-1.035); Urine Urobilinogen Normal (Negative)
[2023-05-24 10:32] LABS: Chloride 109 mmol/L (98-107); Potassium 4.2 mmol/L (3.5-5.1); Sodium 142 mmol/L (136-145)
[2023-05-24 10:33] LABS: Anion Gap 7 (5-15); Calcium 10.2 mg/dL (8.5-10.1); Carbon Dioxide 26 mmol/L (20-30)
[2023-05-24 10:38] LABS: BUN/Creatinine Ratio 13.2 (10.0-20.0); Blood Urea Nitrogen 9 mg/dL (9-23); GFR African American 107 mL/min; GFR Non-African American 88 mL/min; Glucose 102 mg/dL (74-106); Triglycerides 81 mg/dL (< 150)
[2023-05-24 10:39] LABS: LDL Cholesterol 45 mg/dL (< 100)
[2023-05-24 10:40] LABS: Albumin 4.5 g/dL (3.2-4.8); Cholesterol 100 mg/dL (< 200); HDL Cholesterol 41 mg/dL (40-59); Phosphorus 3.4 mg/dL (2.4-5.1)
== END | disposition home or self-care (01) ==
LOC: LAB 09:22
PROVIDERS: ATTEND Internal Medicine Cardiovascular Disease
DX: I10 Essential (primary) hypertension (principal); E11.9 Type 2 diabetes mellitus without complications; D64.9 Anemia, unspecified; D51.3 Other dietary vitamin B12 deficiency anemia; Z79.899 Other long term (current) drug therapy
CPT/HCPCS: 36415; 80048; 80061; 80069; 81003; 82306; 83036; 84443; 85025

== ENCOUNTER → 2023-06-13 | Outpatient (CLI) | payer MEDICARE, OTHER | END | disposition home or self-care (01) | LOC: Rad HDHVI 10:24 | PROVIDERS: ATTEND Internal Medicine Cardiovascular Disease | DX: I08.1 Rheumatic disorders of both mitral and tricuspid valves (principal); I11.9 Hypertensive heart disease without heart failure; I27.21 Secondary pulmonary arterial hypertension; R06.02 Shortness of breath | CPT/HCPCS: 93306 ==

== ENCOUNTER → 2023-06-19 | Outpatient (CLI) | payer MEDICARE, OTHER ==
[~2023-06-19] VITALS: Ht 157.5 cm; Wt 81.6 kg
[~2023-06-19] MED LIST changes: +ADENOSINE 69 MG in GIVE UN-DILUTED 0 ML IV ONE; +ADENOSINE 90 MG/30 ML INJ IV ONE
== END | disposition home or self-care (01) ==
LOC: Rad HDHVI 12:10
PROVIDERS: ATTEND Internal Medicine Cardiovascular Disease
DX: I11.0 Hypertensive heart disease with heart failure (principal); I50.33 Acute on chronic diastolic (congestive) heart failure; I27.21 Secondary pulmonary arterial hypertension; E78.5 Hyperlipidemia, unspecified
CPT/HCPCS: 78452; 93005; 96374; 96375; A9500; J0153

== ENCOUNTER → 2023-11-13 | Outpatient (CLI) | payer MEDICARE, OTHER ==
[~2023-11-13] MED LIST changes: -ADENOSINE 69 MG in GIVE UN-DILUTED 0 ML IV ONE; -ADENOSINE 90 MG/30 ML INJ IV ONE; -TADA20TA47 PO; +[UNRECOGNIZED DRUG - CODE] PO
[2023-11-13 08:46] LABS: Basophils # (auto) 0 10 ^3/uL (0-0.2); Basophils % (auto) 0.5 % (0.0-2.0); Eosinophils # (auto) 0.1 10 ^3/uL (0-0.8); Eosinophils % (auto) 2.1 % (0.0-7.0); Hemoglobin 14.5 g/dL (12.2-16.2); Lymphocytes # (auto) 1.1 10 ^3/uL (0.4-5.4); Lymphocytes % (auto) 22.7 % (10.0-50.0); Mean Corpuscular Hgb Conc. 33.1 g/dL (32.0-36.0); Mean Corpuscular Volume 87.6 fL (80.0-100.0); Monocytes # (auto) 0.4 10 ^3/uL (0-1.3); Monocytes % (auto) 8.8 % (0.0-12.0); Neutrophils # (auto) 3.3 10 ^3/uL (1.6-8.6); Neutrophils % (auto) 65.9 % (37.0-80.0); Nucleated Red Blood Cells % 0.1 %; Red Blood Cells 5.02 10^6/uL (4.0-5.20); Red Cell Distribution Width 14.9 % (11.8-14.3)
[2023-11-13 08:58] LABS: Urine Blood Negative /uL (Negative); Urine Clarity Clear (Clear); Urine Color Light-Yellow (Yellow); Urine Protein, UAD Negative (Negative); Urine Specific Gravity 1.016 (1.001-1.035); Urine Urobilinogen Normal (Negative)
[2023-11-13 09:28] LABS: Alanine Aminotransferase 15 U/L (7-40); Albumin 4.5 g/dL (3.2-4.8); Alkaline Phosphatase 96 U/L (46-116); Anion Gap 4 (5-15); Aspartate Aminotransferase 11 U/L (13-40); BUN/Creatinine Ratio 18.3 (10.0-20.0); Bilirubin, Direct 0.4 mg/dL (<0.3); Blood Urea Nitrogen 11 mg/dL (9-23); Calcium 10.4 mg/dL (8.5-10.1); Carbon Dioxide 28 mmol/L (20-30); Chloride 110 mmol/L (98-107); Cholesterol 104 mg/dL (< 200); Glucose 92 mg/dL (74-106); HDL Cholesterol 39 mg/dL (40-59); LDL Cholesterol 50 mg/dL (< 100); Potassium 4.2 mmol/L (3.5-5.1); Sodium 142 mmol/L (136-145); Total Protein 6.4 g/dL (5.7-8.2); Triglycerides 83 mg/dL (< 150)
== END | disposition home or self-care (01) ==
LOC: LAB 08:31
PROVIDERS: ATTEND Internal Medicine Cardiovascular Disease
DX: I10 Essential (primary) hypertension (principal); E11.9 Type 2 diabetes mellitus without complications; D64.9 Anemia, unspecified; E55.9 Vitamin D deficiency, unspecified; D51.3 Other dietary vitamin B12 deficiency anemia
CPT/HCPCS: 36415; 80048; 80061; 80076; 81003; 83036; 84443; 85025

== ENCOUNTER → 2024-02-12 | Outpatient (CLI) | payer MEDICARE, OTHER | END | disposition home or self-care (01) | LOC: Rad HDHVI 09:55 | PROVIDERS: ATTEND Internal Medicine Cardiovascular Disease | DX: I11.0 Hypertensive heart disease with heart failure (principal); I50.33 Acute on chronic diastolic (congestive) heart failure | CPT/HCPCS: 93306 ==

== ENCOUNTER → 2024-05-07 | Outpatient (CLI) | payer MEDICARE, OTHER ==
[~2024-05-07] VITALS: Ht 157.5 cm; Wt 79.4 kg
[~2024-05-07] MED LIST changes: +ADENOSINE 67 MG in GIVE UN-DILUTED 0 ML IV ONE; +ADENOSINE 90 MG/30 ML INJ IV ONE
== END | disposition home or self-care (01) ==
LOC: Rad HDHVI 09:18
PROVIDERS: ATTEND Internal Medicine Cardiovascular Disease
DX: I11.0 Hypertensive heart disease with heart failure (principal); I50.33 Acute on chronic diastolic (congestive) heart failure; I27.21 Secondary pulmonary arterial hypertension; J45.909 Unspecified asthma, uncomplicated; E78.5 Hyperlipidemia, unspecified; R00.2 Palpitations; R06.02 Shortness of breath
CPT/HCPCS: 78452; 93005; 96374; 96375; A9500; J0153

== ENCOUNTER 2024-12-23 08:30 | Outpatient (CLI) | payer MEDICARE, BC ==
[~2024-12-23 08:30] MED LIST changes: -ADENOSINE 67 MG in GIVE UN-DILUTED 0 ML IV ONE; -ADENOSINE 90 MG/30 ML INJ IV ONE
[2024-12-23 08:54] LABS: Urine Protein, UAD Negative (Negative)
[2024-12-23 09:05] LABS: Hematocrit 44.6 % (36.0-46.0); Hemoglobin 15.0 g/dL (12.2-16.2); Mean Corpuscular Hemoglobin 29.5 pg (28.0-32.0); Mean Corpuscular Volume 87.5 fL (80.0-100.0); Nucleated Red Blood Cells % 0.1 %
[2024-12-23 10:13] LABS: Alanine Aminotransferase 15 U/L (7-40); Albumin 4.6 g/dL (3.2-4.8); Alkaline Phosphatase 88 U/L (46-116); Anion Gap 8 (5-15); BUN/Creatinine Ratio 18.2 (10.0-20.0); Bilirubin, Direct 0.3 mg/dL (<0.3); Blood Urea Nitrogen 12 mg/dL (9-23); Calcium 9.9 mg/dL (8.7-10.4); Carbon Dioxide 28 mmol/L (20-31); Cholesterol 107 mg/dL (< 200); Glucose 92 mg/dL (74-106); HDL Cholesterol 43 mg/dL (40-59); Potassium 4.3 mmol/L (3.5-5.1); Sodium 145 mmol/L (136-145); Total Protein 6.4 g/dL (5.7-8.2); Triglycerides 68 mg/dL (< 150)
[2024-12-23 10:14] LABS: Bilirubin, Total 0.8 mg/dL (0.2-1.0)
[2024-12-23 10:17] LABS: Chloride 109 mmol/L (98-107)
== END 2024-12-23 17:00 | disposition home or self-care (01) ==
LOC: LAB 08:30
PROVIDERS: ATTEND Internal Medicine Cardiovascular Disease
DX: I10 Essential (primary) hypertension (principal); E11.9 Type 2 diabetes mellitus without complications; E55.9 Vitamin D deficiency, unspecified; D64.9 Anemia, unspecified; R00.2 Palpitations
CPT/HCPCS: 36415; 80048; 80061; 80076; 81003; 83036; 84443; 85025

== ENCOUNTER → 2025-01-09 | Outpatient (CLI) | payer MEDICARE, BC | END | disposition home or self-care (01) | LOC: Rad HDHVI 08:00 | PROVIDERS: ATTEND Internal Medicine Cardiovascular Disease | DX: I08.1 Rheumatic disorders of both mitral and tricuspid valves (principal); E78.5 Hyperlipidemia, unspecified | CPT/HCPCS: 93306 ==

== ENCOUNTER 2025-01-23 07:59 | Outpatient (CLI) | payer MEDICARE, BC ==
[~2025-01-23] VITALS: Ht 157.5 cm; Wt 74.8 kg
[2025-01-23] MEDS ORDERED: ADENOSINE 63 MG in GIVE UN-DILUTED 0 ML IV ONE (08:30)
[2025-01-23] MEDS ORDERED: ADENOSINE 90 MG/30 ML INJ IV ONE (08:31)
== END 2025-01-23 17:00 | disposition home or self-care (01) ==
LOC: Rad HDHVI 07:59
PROVIDERS: ATTEND Internal Medicine Cardiovascular Disease
DX: I49.1 Atrial premature depolarization (principal); I11.0 Hypertensive heart disease with heart failure; I50.33 Acute on chronic diastolic (congestive) heart failure; R00.1 Bradycardia, unspecified; I27.20 Pulmonary hypertension, unspecified; E78.5 Hyperlipidemia, unspecified; J45.909 Unspecified asthma, uncomplicated; R00.2 Palpitations
CPT/HCPCS: 78452; 93017; A9500; J0153

== ENCOUNTER 2025-02-18 14:15 | Outpatient (CLI) | payer MEDICARE, BC | END 2025-02-19 17:00 | disposition home or self-care (01) | LOC: Rad HDHVI 14:15 | PROVIDERS: ATTEND Internal Medicine Cardiovascular Disease | DX: I11.0 Hypertensive heart disease with heart failure (principal); I50.33 Acute on chronic diastolic (congestive) heart failure | CPT/HCPCS: 93880 ==